=== PATIENT | female | born 1985 | race Caucasian/White ===

== ENCOUNTER 2021-01-12 20:43 | Emergency (ER) | payer MEDICAID ==
[~2021-01-12] VITALS: Ht 162.6 cm; Wt 55.0 kg
[2021-01-12 21:44] LABS: CLARITY URINE TURBID (CLEAR); COLOR URINE RED (YELLOW); KETONES URINE NEGATIVE (NEGATIVE); LEUKOCYTE ESTERASE URINE 2+ (NEGATIVE); NITRITE URINE POSITIVE (NEGATIVE); OCCULT BLOOD URINE 2+ (NEGATIVE); PROTEIN URINE 2+ (NEGATIVE); SPECIFIC GRAVITY URINE 1.027 (1.005-1.030); UROBILINOGEN URINE 0.2 E.U./dL (0.2-1.0)
[2021-01-12 23:06] LABS: HEMATOCRIT. 37.2 % (36.0-48.0); HEMOGLOBIN. 12.2 g/dL (12.0-16.0); MEAN CORPUSCULAR HEMOGLOBIN 30.6 pg (28.0-32.0); MEAN CORPUSCULAR VOLUME 93.4 fL (81.0-99.0); MEAN PLATELET VOLUME 9.1 fl (7.4-10.4); PLATELET 339 x1000/uL (130-400); RED BLOOD CELL COUNT 3.98 mill/uL (4.2-5.4); RED CELL DISTRIBUTION WIDTH 13.3 % (11.6-14.6)
[2021-01-12 23:08] LABS: CHLORIDE 107 mEq/L (98-107)
[2021-01-12] MEDS ORDERED: CEFTRIAXONE SODIUM 1 G/VIAL IM ONE (23:15)
[2021-01-12] MEDS ORDERED: DOXYCYCLINE HYCLATE 100MG CAPSULE PO ONE (23:15)
[2021-01-12] MEDS ORDERED: METOCLOPRAMIDE HCL 10MG/2ML VIAL IV ONE (23:15)
[2021-01-12 23:31] LABS: PLATELET ESTIMATE NORMAL
[2021-01-12] MEDS ORDERED: NITROFURANTOIN 100MG M/M CAPSULE PO ONE (23:45)
[2021-01-13] MEDS ORDERED: AMOX-424 MT (01:06)
[2021-01-13] MEDS ORDERED: NITR-87 MT (01:17)
[2021-01-13] MEDS ORDERED: DOXY100C5 MT (01:18)
[2021-01-13 01:40] VITALS: BP 120/68
== END 2021-01-13 01:40 | disposition home or self-care (01) ==
LOC: ER 20:43
DX: N39.0 Urinary tract infection, site not specified (principal); N93.9 Abnormal uterine and vaginal bleeding, unspecified; F31.9 Bipolar disorder, unspecified; Z98.890 Other specified postprocedural states
CPT/HCPCS: 36415; 76856; 80053; 81003; 81025; 83690; 85025; 87077; 87086; 87186; 96372; 96374; 99284; J0696; J2765

== ENCOUNTER 2021-01-15 16:46 | Emergency (ER) | payer MEDICAID ==
[~2021-01-15] VITALS: Ht 162.6 cm; Wt 55.0 kg
[~2021-01-15 16:46] MED LIST: DOXY100C5 MT; NITR-87 MT
[2021-01-15 17:00] VITALS: BP 119/74
== END 2021-01-15 18:35 | disposition left against medical advice (07) ==
LOC: ER 16:46
DX: R10.9 Unspecified abdominal pain (principal); Z53.21 Procedure and treatment not carried out due to patient leaving prior to being seen by health care provider